=== PATIENT | male | born 1990 | race Caucasian/White ===

== ENCOUNTER 2018-12-23 15:27 | Emergency (ER) | payer OTHER ==
[~2018-12-23] VITALS: Ht 175.2 cm; Wt 90.7 kg
[2018-12-24 08:04] LABS: HEPATITIS B SURFACE AB 006395 Reactive (.); HEPATITIS C AB <0.1 (0.0-0.9)
== END 2018-12-23 16:23 | disposition home or self-care (01) ==
LOC: ED 15:27
PROVIDERS: Nurse Practitioner Family
DX: Z77.21 Contact with and (suspected) exposure to potentially hazardous body fluids (principal)